=== PATIENT | male | born 1975 | race Caucasian/White ===

== ENCOUNTER 2018-07-13 09:40 | Emergency (ER) | payer BC ==
[~2018-07-13] VITALS: Ht 180.3 cm; Wt 104.3 kg
== END 2018-07-13 10:16 | disposition home or self-care (01) ==
LOC: ED 09:40
PROC: 0HQ0XZZ Repair Scalp Skin, External Approach (ICD-10-PCS; principal; 2018-07-13)
DX: S01.01XA Laceration without foreign body of scalp, initial encounter (principal); W26.8XXA Contact with other sharp object(s), not elsewhere classified, initial encounter
CPT/HCPCS: 12002; 99282